=== PATIENT | female | born 1965 | race Caucasian/White ===

== ENCOUNTER 2016-11-04 14:09 | Emergency (ER) | payer BC, OTHER ==
[~2016-11-04] VITALS: Ht 152.4 cm; Wt 86.0 kg
[~2016-11-04 14:09] MED LIST: AMLO-145 PO; ATEN50TA PO; DIPH25CA6 PO; HYDR25TA6 PO; NCN500CCR PO
[2016-11-04 14:20] VITALS: Ht 152.4 cm; Wt 86.0 kg
[2016-11-04] MEDS ORDERED: KETOROLAC 30 MG INJ IM STA (18:03)
[2016-11-04] MEDS ORDERED: CIPR500T4 PO (18:18)
[2016-11-04] MEDS ORDERED: PHEN-616 PO (18:19)
--- NOTE | 2016-11-04 18:53 | ERD ---
ER Documentation Chief Complaint Date/Time DATE: 11/04/16 TIME: 18:52 Chief Complaint Pt with hx of hysterectomy, Bleeding VB vs Hematuria X 4 days.Dysuria. HPI This is a 50-year-old female with a history of hypertension presenting to the emergency department complaining of painful urination for the past 4 days. Patient said that she started noticing blood whenever she urinates. Patient admits to having mild suprapubic tenderness. Patient denies any fevers. Patient's past abdominal surgeries include hysterectomy ROS All systems reviewed and are negative except as per history of present illness. Medications Home Meds Active Scripts Phenazopyridine Hcl* (Phenazopyridine Hcl*) 200 Mg Tablet, 200 MG PO TID, #20 TAB Prov:LINWOOD CHOE PA-C 11/04/16 Ciprofloxacin Hcl* (Ciprofloxacin Hcl*) 500 Mg Tablet, 500 MG PO BID for 7 Days , #14 TAB Prov:LINWOOD CHOE PA-C 11/04/16 Reported Medications Amlodipine Besylate* (Amlodipine Besylate*) 5 Mg Tablet, 5 MG PO DAILY 12/03/11 Atenolol* (Atenolol*) 50 Mg Tablet, 50 MG PO DAILY 12/03/11 Hydrochlorothiazide (Hydrochlorothiazide) 25 Mg Tablet, 25 MG PO DAILY 12/03/11 Niacin* (Niaspan*) 500 Mg Tablet.sa, 500 MG PO DAILY 12/03/11 Diphenhydramine Hcl (Benadryl) 25 Mg Cap, 25 MG PO BID 12/03/11 Allergies Allergies: Coded Allergies: No Known Allergy (Unverified , 12/03/11) PMhx/Soc History of Surgery: Yes (, TUBALIGATION, CYST REMOVAL) Anesthesia Reaction: No Hx Neurological Disorder: No Hx Respiratory Disorders: No Hx Cardiac Disorders: No (HTN) Hx Psychiatric Problems: No Hx Miscellaneous Medical Probl: No Hx Alcohol Use: No Hx Substance Use: No Hx Tobacco Use: No Smoking Status: Never smoker Physical Exam Vitals Vital Signs Date Time Temp Pulse Resp B/P Pulse Ox O2 Delivery O2 Flow Rate FiO2 11/04/16 14:20 98.1 103 18 180/89 98 Physical Exam GENERAL: well-developed/well-nourished, in no apparent distress, non-toxic appearing HENT: NC/AT, moist mucous membranes EYES: Conjunctiva normal NECK: Supple, no lymphadenopathy PULM: CTA bilaterally, no rales, rhonchi, or wheezing heard CV: Normal S1S2, RRR, good capillary refill GI: Soft, non-distended, mild tender to palpation pubic region Normal bowel sounds, no masses or organomegaly felt on exam No gross peritonitis, no bruits Negative Rovsing, negative Orta, negative McBurney's point, Negative CVAT BACK: No masses EXT: No clubbing, cyanosis, or edema NEURO: Alert and Orientated SKIN: Intact, normal turgor PSYCH: Normal mood and mentation Results 24 hrs Laboratory Tests Test 11/04/16 18:36 Urine Bacteria FEW Urine Bilirubin NEGATIVE Urine Clarity SLIGHTLY CLOUDY Urine Color LT. YELLOW Urine Glucose NEGATIVE% Urine Hemoglobin 3+ Urine Ketones NEGATIVE Urine Leukocyte Esterase 3+ Urine Microscopic RBC 2-5/HPF Urine Microscopic WBC >50/HPF Urine Nitrite NEGATIVE Urine Specific [place] <=1.005 Urine Squamous Epithelial Cells FEW Urine Total Protein TRACE Urine Transitional Epithelial Cells Urine Urobilinogen 0.2 E.U./dL Urine pH 5.5 Current Medications Medications (Trade) Dose Ordered Sig/Mita Route PRN Reason Start Time Stop Time Status Last Admin Dose Admin Ketorolac Tromethamine (Toradol) 30 mg ONCE STAT IM 11/04/16 18:03 11/04/16 18:05 DC Procedures/MDM This is a 50-year-old female presenting to the emergency department with dysuria and hematuria for the past 4 days, this is likely a urinary tract infection. Patient appears well, she is afebrile. She did not have any CVA tenderness. Low suspicion for pyelonephritis, nephrolithiasis, ovarian torsion due to physical examination and diagnostic testing. Urinalysis showed +3 hemoglobin, +3 leukocyte esterase, WBC Urine culture was sent out. Patient is hemodynamically stable for discharge. Prescriptions Cipro BID x 7 days have been given to take as directed. Strict precautions were given to return to the ER if not improving as expected or for any worsening signs and symptoms Departure Diagnosis: Primary Impression: UTI (urinary tract infection) Urinary tract infection type: acute cystitis Hematuria presence: with hematuria Qualified Code: N30.01 - Acute cystitis with hematuria Condition: Stable Patient Instructions: Understanding Urinary Tract Infections (UTIs) Additional Instructions: FOLLOW UP WITH YOUR PRIMARY CARE PHYSICIAN TOMORROW.Return to this facility if you are not improving as expected. Take all medicines as directed. Return to this facility if you are not improving as expected. LINWOOD CHOE PA-C Nov 04, 2016 18:53
[2016-11-04 19:10] LABS: ADD UMIC YES; URINE BILIRUBIN (Dip) NEGATIVE (NEGATIVE); URINE BLOOD (Dip) 3+ (NEGATIVE); URINE COLOR LT. YELLOW (YELLOW); URINE GLUCOSE (Dip) NEGATIVE (NEGATIVE); URINE KETONES (Dip) NEGATIVE (NEGATIVE); URINE LEUKOCYTE ESTERASE (Dip) 3+ (NEGATIVE); URINE NITRITE (Dip) NEGATIVE (NEGATIVE); URINE TOTAL PROTEIN (Dip) TRACE (NEGATIVE); URINE UROBILINOGEN (Dip) 0.2 E.U./dL (0.1-1.0)
[2016-11-04 19:24] LABS: BACTERIA,URINE FEW; SQUAMOUS EPITHELIAL CELL,UR FEW
[2016-11-04 19:41] VITALS: BP 151/79; PULSE 80; RESP 20; TEMP 98.4
== END 2016-11-04 19:42 | disposition home or self-care (01) ==
LOC: FTE 14:09
DX: N30.01 Acute cystitis with hematuria (principal); I10 Essential (primary) hypertension
CPT/HCPCS: 81001; 87086; Z7502; 81003; 99283; J1885

== ENCOUNTER 2017-06-05 20:04 | Emergency (ER) | payer BC ==
[~2017-06-05] VITALS: Ht 157.5 cm; Wt 84.5 kg
[~2017-06-05 20:04] MED LIST changes: +CIPR500T4 PO; +PHEN-616 PO
[2017-06-05 20:26] VITALS: Ht 157.5 cm; Wt 84.5 kg
[2017-06-05] MEDS ORDERED: ONDANSETRON 4 MG INJ IV STA (21:51)
[2017-06-05] MEDS ORDERED: LIDOCAINE/MYLANTA 40 ML BTL PO STA (22:15)
[2017-06-05] MEDS ORDERED: BELLADONNA/PHENOBARBITAL TAB PO STA (22:15)
[2017-06-05] MEDS ORDERED: FAMOTIDINE 20 MG TAB PO STA (22:15)
[2017-06-05] MEDS ORDERED: SOD CHLORIDE 0.9% 1,000 ML IV STA (22:15)
[2017-06-05] MEDS ORDERED: METF500T4 PO (22:26)
[2017-06-05] MEDS ORDERED: METO-407 PO (22:27)
[2017-06-05] MEDS ORDERED: ERGO500037 PO (22:27)
[2017-06-05] MEDS ORDERED: DYAZIDE PO (22:28)
[2017-06-05] MEDS ORDERED: VALS160T20 PO (22:29)
[2017-06-05 22:38] LABS: BASOPHILS % 0.2 % (0.0-2.0); EOSINOPHILS % 0.4 % (0.0-7.0); HEMOGLOBIN 13.5 g/dl (12.0-16.0); LYMPHOCYTES # 2.2 10^3/ul (0.8-2.9); LYMPHOCYTES % 22.3 % (15.0-51.0); MEAN CORPUSCULAR HEMOGLOBIN 30.6 pg (29.0-33.0); MEAN CORPUSCULAR HGB CONC 35.5 g/dl (32.0-37.0); MEAN CORPUSCULAR VOLUME 86.2 fl (82.0-101.0); MEAN PLATELET VOLUME 9.9 fl (7.4-10.4); MONOCYTE # 0.5 10^3/ul (0.3-0.9); MONOCYTES % 5.4 % (0.0-11.0); NEUTROPHIL # 7.1 10^3/ul (1.6-7.5); NEUTROPHILS % 71.4 % (39.0-77.0); PLATELET COUNT 296 10^3/UL (140-415); RED BLOOD COUNT 4.41 10^6/ul (4.20-5.40); RED CELL DISTRIBUTION WIDTH 11.8 % (11.5-14.5); WHITE BLOOD COUNT 9.9 10^3/ul (4.8-10.8)
--- NOTE | 2017-06-05 22:42 | RADRPT ---
PROCEDURE: XR Chest. CLINICAL INDICATION: Abdominal pain. TECHNIQUE: Single frontal chest x-ray. COMPARISON: None available. FINDINGS: The cardiac silhouette is mildly enlarged. Mild left basilar atelectasis is noted. No pneumothorax, pleural effusion or consolidation is seen. No acute osseous abnormality is noted. IMPRESSION: 1. Mild cardiomegaly. 3. Mild left basilar atelectasis. RPTAT: HFN .Dayday Higgins MD, Date Time Electronically viewed and signed by .Dayday Higgins MD, on 06/05/2017 22:42 .N/
[2017-06-05 22:55] LABS: ALANINE AMINOTRANSFERASE 45 IU/L (13-69); ALBUMIN 4.2 g/dl (3.3-4.9); ALKALINE PHOSPHATASE 106 IU/L (42-121); ANION GAP 13 (8-16); ASPARTATE AMINO TRANSFERASE 30 IU/L (15-46); BILIRUBIN,INDIRECT 0.3 mg/dl (0-1.1); BILIRUBIN,TOTAL 0.3 mg/dl (0.2-1.3); BLOOD UREA NITROGEN 10 mg/dl (7-20); CALCIUM 9.5 mg/dl (8.4-10.2); CARBON DIOXIDE 24 mmol/L (21-31); CHLORIDE 98 mmol/L (97-110); CREATININE 0.57 mg/dl (0.44-1.00); GLUCOSE 134 mg/dl (70-220); POTASSIUM 3.3 mmol/L (3.5-5.1); SODIUM 132 mmol/L (135-144); TOTAL PROTEIN 7.7 g/dl (6.1-8.1)
[2017-06-05 23:07] LABS: TROPONIN-I < 0.012 ng/ml (0.00-0.12)
[2017-06-05] MEDS ORDERED: FAMO40TA52 PO (23:31)
[2017-06-05] MEDS ORDERED: MAG355OR14 PO (23:31)
[2017-06-05] MEDS ORDERED: ONDA4TAB8 PO (23:31)
[2017-06-05 23:44] LABS: ADD UMIC NO; UR ASCORBIC ACID NEGATIVE (NEGATIVE); UR BILIRUBIN (Dip) NEGATIVE (NEGATIVE); UR BLOOD (Dip) NEGATIVE (NEGATIVE); UR CLARITY CLEAR (CLEAR); UR COLOR STRAW (YELLOW); UR GLUCOSE (Dip) NEGATIVE (NEGATIVE); UR KETONES (Dip) TRACE mg/dL (NEGATIVE); UR LEUKOCYTE ESTERASE (Dip) NEGATIVE Leu/ul (NEGATIVE); UR NITRITE (Dip) NEGATIVE (NEGATIVE); UR SPECIFIC GRAVITY (Dip) 1.008 (1.003-1.030); UR TOTAL PROTEIN (Dip) NEGATIVE (NEGATIVE); UR UROBILINOGEN (Dip) NEGATIVE (NEGATIVE)
[2017-06-06 00:25] VITALS: BP 143/66; PULSE 59; RESP 20; TEMP 98.6
--- NOTE | 2017-06-06 00:58 | ERD ---
ER Documentation Chief Complaint Date/Time DATE: 06/06/17 TIME: 00:55 Chief Complaint Nausea, pt verbalize not feeling good, pt thinks food poisoning HPI 51-year-old woman complains of nausea, dizziness, belching, retching, epigastric discomfort lasting for about 2 hours shortly after eating dinner tonight. She states she has felt like this in the past usually associated with p.o. intake. She denies chest pain or shortness of breath, no loss of consciousness or vomiting, no chest pain, no headache or blurry vision, no weakness in her arms or legs. ROS All systems reviewed and are negative except as per history of present illness. Medications Home Meds Active Scripts Famotidine* (Famotidine*) 40 Mg Tablet, 40 MG PO HS, #30 TAB Prov:ISABELA GUTHRIE MD 06/05/17 Mag Hydrox/Al Hydrox/Simeth (Maalox Advanced Suspension) 355 Ml Oral.susp, 2 TSP PO TID for PAIN, #24 OZ Prov:ISABELA GUTHRIE MD 06/05/17 Ondansetron Hcl* (Zofran*) 4 Mg Tablet, 4 MG PO Q8H Y for NAUSEA AND/OR VOMITING , #12 TAB Prov:ISABELA GUTHRIE MD 06/05/17 Reported Medications Valsartan* (Diovan*) 160 Mg Tablet, 160 MG PO DAILY, TAB 06/05/17 Triamterene-HCTZ (Dyazide) 37.5 - 25 Mg Cap, 1 CAP PO DAILY, CAP 06/05/17 Metoprolol Tartrate* (Lopressor*) 100 Mg Tablet, 100 MG PO BID, #60 TAB 06/05/17 Ergocalciferol (Vitamin D2) (VITAMIN D2) 50,000 Unit Capsule, 63400 UNIT PO Q7D , CAP 06/05/17 Metformin Hcl* (Metformin Hcl*) 500 Mg Tablet, 500 MG PO WITH BREAKFAST DINNE, # 60 TAB 06/05/17 Discontinued Reported Medications Amlodipine Besylate* (Amlodipine Besylate*) 5 Mg Tablet, 5 MG PO DAILY 12/03/11 Atenolol* (Atenolol*) 50 Mg Tablet, 50 MG PO DAILY 12/03/11 Hydrochlorothiazide (Hydrochlorothiazide) 25 Mg Tablet, 25 MG PO DAILY 12/03/11 Niacin* (Niaspan*) 500 Mg Tablet.sa, 500 MG PO DAILY 12/03/11 Diphenhydramine Hcl (Benadryl) 25 Mg Cap, 25 MG PO BID 12/03/11 Discontinued Scripts Phenazopyridine Hcl* (Phenazopyridine Hcl*) 200 Mg Tablet, 200 MG PO TID, #20 TAB Prov:LINWOOD CHOE PA-C 11/04/16 Ciprofloxacin Hcl* (Ciprofloxacin Hcl*) 500 Mg Tablet, 500 MG PO BID for 7 Days , #14 TAB Prov:LINWOOD CHOE PA-C 11/04/16 Allergies Allergies: Coded Allergies: No Known Allergy (Unverified , 06/05/17) PMhx/Soc Hypertension, obesity History of Surgery: Yes (, TUBALIGATION, CYST REMOVAL) Anesthesia Reaction: No Hx Neurological Disorder: No Hx Respiratory Disorders: No Hx Cardiac Disorders: No (HTN) Hx Psychiatric Problems: No Hx Miscellaneous Medical Probl: Yes (DM) Hx Alcohol Use: No Hx Substance Use: No Hx Tobacco Use: No Smoking Status: Never smoker FmHx Family History: No diabetes Physical Exam Vitals Vital Signs Date Time Temp Pulse Resp B/P Pulse Ox O2 Delivery O2 Flow Rate FiO2 06/06/17 00:25 98.6 59 20 143/66 100 Room Air 06/05/17 22:00 97.3 62 23 162/89 99 Room Air 06/05/17 20:26 97.3 69 20 175/75 98 Physical Exam GENERAL: Well-developed, well-nourished, well-hydrated, in no apparent distress , looks nontoxic in appearance HEENT: Moist mucous membranes, pink conjunctiva, no cervical spine tenderness or step-off deformities, no goiter, no jaundice or icterus, extraocular movements intact without pain. No submandibular induration, and no pharyngeal erythema NEURO: Alert and oriented 3, cranial nerves II through XII intact bilaterally, pupils equal round reactive to light, no focal deficits or facial asymmetry, sensation intact distally Strength 5/5 in upper and lower extremities bilaterally CARDIAC: Regular rate and rhythm, no murmurs rubs or gallops LUNGS: Clear bilaterally no wheezing crackles or stridor ABDOMEN: Soft nontender, no guarding, no rigidity, no rebound, no psoas sign no obturator sign. Normoactive bowel sounds SKIN: Warm and dry to touch, no abrasions, contusions, or hematomas, no lacerations, no ecchymosis, no target lesions, and without ulcers EXTREMITIES: No clubbing cyanosis or edema, calves are bilaterally symmetrical, no Homans sign, no popliteal cord sign. Distal pulses equal and bilateral PSYCH: Normal affect without agitation or irritability Result Diagram: 06/05/17220906/05/172209 Results 24 hrs Laboratory Tests Test 06/05/17 22:10 06/05/17 23:20 White Blood Count 9.910^3/ul Red Blood Count 4.4110^6/ul Hemoglobin 13.5g/dl Hematocrit 38.0% Mean Corpuscular Volume 86.2fl Mean Corpuscular Hemoglobin 30.6pg Mean Corpuscular Hemoglobin Concent 35.5g/dl Red Cell Distribution Width 11.8% Platelet Count 98680^3/UL Mean Platelet Volume 9.9fl Neutrophils % 71.4% Lymphocytes % 22.3% Monocytes % 5.4% Eosinophils % 0.4% Basophils % 0.2% Nucleated Red Blood Cells % 0.0/100WBC Neutrophils # 7.110^3/ul Lymphocytes # 2.210^3/ul Monocytes # 0.510^3/ul Eosinophils # 0.010^3/ul Basophils # 0.010^3/ul Nucleated Red Blood Cells # 0.010^3/ul Sodium Level 132mmol/L Potassium Level 3.3mmol/L Chloride Level 98mmol/L Carbon Dioxide Level 24mmol/L Anion Gap 13 Blood Urea Nitrogen 10mg/dl Creatinine 0.57mg/dl Glucose Level 134mg/dl Calcium Level 9.5mg/dl Total Bilirubin 0.3mg/dl Direct Bilirubin 0.00mg/dl Indirect Bilirubin 0.3mg/dl Aspartate Amino Transf (AST/SGOT) 30IU/L Alanine Aminotransferase (ALT/SGPT) 45IU/L Alkaline Phosphatase 106IU/L Troponin I < 0.012ng/ml Total Protein 7.7g/dl Albumin 4.2g/dl Globulin 3.50g/dl Albumin/Globulin Ratio 1.20 Lipase 56U/L Urine Color STRAW Urine Clarity CLEAR Urine pH 7.0 Urine Specific [place] 1.008 Urine Ketones TRACEmg/dL Urine Nitrite NEGATIVEmg/dL Urine Bilirubin NEGATIVEmg/dL Urine Urobilinogen NEGATIVEmg/dL Urine Leukocyte Esterase NEGATIVELeu/ul Urine Hemoglobin NEGATIVEmg/dL Urine Glucose NEGATIVEmg/dL Urine Total Protein NEGATIVEmg/dl Current Medications Medications (Trade) Dose Ordered Sig/Mita Route PRN Reason Start Time Stop Time Status Last Admin Dose Admin Ondansetron HCl 4 mg 4 mg ONCE STAT IV 06/05/17 21:51 06/05/17 21:52 DC 06/05/17 22:51 Sodium Chloride (NS) 1,000 ml @ 1,000 mls/hr Q1H STAT IV 06/05/17 22:15 06/05/17 23:14 DC 06/05/17 22:52 Famotidine (Pepcid) 40 mg ONCE STAT PO 06/05/17 22:15 06/05/17 22:16 DC 06/05/17 22:51 Miscellaneous Medication (Gi Cocktail (2)) 40 ml ONCE STAT PO 06/05/17 22:15 06/05/17 22:16 DC 06/05/17 22:50 Belladonna/ Phenobarbital () 2 tab ONCE STAT PO 06/05/17 22:15 06/05/17 22:16 DC 06/05/17 22:51 Procedures/MDM IV line was established patient was placed on hat maker rhythm strip revealed a sinus rhythm at about 60 bpm with upright P and T waves. Patient was afebrile. EKG performed, read by me: 62 bpm, normal sinus rhythm, normal axis, first- degree atrial ventricular block at 280 ms, no acute ST segment changes, narrow QRS complex, with good R-wave progression in precordial leads. I administered 1 L normal saline intravenously, famotidine 40 mg p.o., GI cocktail 30 cc p.o., and Zofran 4 mg IV with good response. CBC and electrolytes are normal, liver function tests are normal, troponin was negative, urine analysis was negative for infection. Differential diagnoses considered, included but not limited to acute coronary syndrome, pulmonary embolism, aortic dissection, abdominal aortic aneurysm, sepsis, stroke, meningitis, encephalitis, pneumonia, appendicitis, cholecystitis , bowel obstruction, pyelonephritis, nephrolithiasis, cystitis, as well as metabolic, hematologic, and electrolyte abnormalities. As well as abscess, cellulitis, fractures, and dislocations. Patient feels much better at this time, and vital signs are normal, symptoms have improved. I did give strict instructions to return to the ED if symptoms continue or worsen, patient will otherwise follow-up with primary care physician. Patient understood instructions and agreed to plan. Disclaimer: Inadvertent spelling and grammatical errors are likely due to EHR/ dictation software use and do not reflect on the overall quality of patient care. Also, please note that the electronic time recorded on this note does not necessarily reflect the actual time of the patient encounter. Departure Diagnosis: Primary Impression: Abdominal pain Abdominal location: generalized Qualified Code: R10.84 - Generalized abdominal pain Additional Impression: GERD (gastroesophageal reflux disease) Esophagitis presence: with esophagitis Qualified Code: K21.0 - Gastroesophageal reflux disease with esophagitis Condition: Good Patient Instructions: Abdominal Pain ISABELA GUTHRIE MD Jun 06, 2017 00:58
== END 2017-06-06 00:27 | disposition home or self-care (01) ==
LOC: E/R 20:04
DX: R10.84 Generalized abdominal pain (principal); K21.0 Gastro-esophageal reflux disease with esophagitis; I10 Essential (primary) hypertension; E11.9 Type 2 diabetes mellitus without complications; Z79.84 Long term (current) use of oral hypoglycemic drugs
CPT/HCPCS: 36415; 71010; 80053; 81003; 83690; 84484; 85025; 93005; 96374; J2405; J7030; Z7502; Z7610